=== PATIENT | female | born 1985 | race African-American/Black ===

== ENCOUNTER → 2016-08-10 | Outpatient (CLI) | payer MEDICAID | END | disposition home or self-care (01) | LOC: MW.MNT 12:25 | PROVIDERS: ATTEND Obstetrics & Gynecology | DX: Z71.3 Dietary counseling and surveillance (principal); O99.212 Obesity complicating pregnancy, second trimester; E66.01 Morbid (severe) obesity due to excess calories; Z68.39 Body mass index [BMI] 39.0-39.9, adult; Z3A.18 18 weeks gestation of pregnancy | CPT/HCPCS: 97802 ==

== ENCOUNTER 2017-01-02 22:59 | Inpatient (IN) | payer MEDICAID ==
[2017-01-02] MEDS ORDERED: Butorphanol 1 MG/ML SDV IVPUSH PRN (23:14)
[2017-01-02] MEDS ORDERED: Misoprostol 200 MCG Tab PO PRN (23:14)
[2017-01-02] MEDS ORDERED: Lidocaine 1% 50 ML MDV INJECT PRN (23:14)
[2017-01-02] MEDS ORDERED: Carboprost Tromethamine 250 MCG/1 ML Amp IM PRN (23:14)
[2017-01-02] MEDS ORDERED: Methylergonovine 0.2 MG/1 ML Amp IM PRN (23:14)
[2017-01-02] MEDS ORDERED: Sodium Chloride 0.9% 2.5 ML Syringe FLUSH PRN (23:14)
[2017-01-02] MEDS ORDERED: Nalbuphine 10 MG/1 ML Vial IVPUSH PRN (23:14)
[2017-01-02] MEDS ORDERED: Misoprostol 25 MCG (1/4 of 100 MCG) Tab VAG PRN (23:14)
[2017-01-02] MEDS ORDERED: Water For Irrigation,Sterile 1,000 ML Container IRR PRN (23:14)
[2017-01-02] MEDS ORDERED: Terbutaline 1 MG/ML SDV SUBCUT PRN (23:14)
[2017-01-02] MEDS ORDERED: Sodium Chloride 0.9% 10 ML Syringe FLUSH PRN (23:14)
[2017-01-02] MEDS ORDERED: Oxytocin/Lactated Ringers 30 UNIT/500 ML BAG IV SCH ×2 (23:15)
[2017-01-02] MEDS ORDERED: Misoprostol 25 MCG (1/4 of 100 MCG) Tab VAG SCH (23:15)
[2017-01-02] MEDS ORDERED: Ampicillin 2 GM in Sodium Chloride 0.9% 100 ML IV ONE ×2 (23:30→23:45)
[2017-01-02] MEDS: Lactated Ringers 1,000 ML IV SCH (23:50)
[2017-01-03] MEDS: Ampicillin 1 GM in Sodium Chloride 0.9% 50 ML IV SCH ×3 (04:30→12:35)
[2017-01-03] MEDS: Lactated Ringers 1,000 ML IV SCH ×2 (05:13→12:40)
[2017-01-03] MEDS ORDERED: fentaNYL 100 MCG/2 ML SDV ONE (12:37)
--- NOTE | 2017-01-03 12:37 | PCM.PREANE ---
Preanesthetic Assessment - Anesthesia/Transfusion/Family Hx Anesthesia History: Prior Anesthesia Without Reaction Transfusion History: No Prior Transfusion(s) - Review of Systems General: No Symptoms Pulmonary: No Symptoms Cardiovascular: No Symptoms Gastrointestinal: No Symptoms Neurological: No Symptoms Other: Reports: None - Physical Assessment Height: 5 ft 6 in Weight: 117.934 kg ASA Class: 2 Mental Status: Alert & Oriented x3 Airway Class: Mallampati = 2 Dentition: Reports: Normal Dentition Thyro-Mental Finger Breadths: 3 Mouth Opening Finger Breadths: 3 ROM/Head Extension: Full Lungs: Clear to Auscultation, Normal Respiratory Effort Cardiovascular: Regular Rate, Regular Rhythm - Lab Values: Laboratory Last Values WBC 7.78 K/uL (4.0-11.0) 01/02/17 23:43 RBC 3.93 M/uL (4.30-5.90) L 01/02/17 23:43 Hgb 9.1 g/dL (12.0-16.0) L 01/02/17 23:43 Hct 28.3 % (36.0-46.0) L 01/02/17 23:43 MCV 72.0 fL (80.0-98.0) L 01/02/17 23:43 MCH 23.2 pg (27.0-32.0) L 01/02/17 23:43 MCHC 32.2 g/dL (31.0-37.0) 01/02/17 23:43 RDW Std Deviation 57.1 fl (28.0-62.0) 01/02/17 23:43 RDW Coeff of Sammi 22 % (11.0-15.0) H 01/02/17 23:43 Plt Count 205 K/uL (150-400) 01/02/17 23:43 Nucleated RBC % 0.0 /100WBC 01/02/17 23:43 Nucleated RBCs # 0 K/uL 01/02/17 23:43 POC Glucose 71 mg/dL (60-110) 01/03/17 10:23 Blood Type B POSITIVE 01/02/17 23:43 Antibody Screen NEGATIVE 01/02/17 23:43 - Allergies Allergies/Adverse Reactions: Allergies Allergy/AdvReac Type Severity Reaction Status Date / Time No Known Allergies Allergy Verified 09/05/14 21:01 - Acknowledgements Anesthesia Type Planned: Epidural Pt an Appropriate Candidate for the Planned Anesthesia: Yes Alternatives and Risks of Anesthesia Discussed w Pt/Guardian: Yes Pt/Guardian Understands and Agrees with Anesthesia Plan: Yes PreAnesthesia Questionnaire HEENT History: Reports: None Cardiovascular History: Reports: None Respiratory History: Reports: Other (See Below) (Pneumonia) Gastrointestinal History: Reports: GERD Genitourinary History: Reports: None 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: : 4 Para: 2 LMP (Approximate): Musculoskeletal History: Reports: None Neurological History: Reports: None Psychiatric History: Reports: None Endocrine/Metabolic History: Reports: Diabetes, Gestational, Hypothyroidism, Obesity/BMI 30+ Hematologic History: Reports: Anemia Immunologic History: Reports: None Oncologic (Cancer) History: Reports: None Dermatologic History: Reports: None - Past Surgical History HEENT Surgical History: Reports: Oral Surgery - SUBSTANCE USE Smoking Status *Q: Never Smoker Days Per Week of Alcohol Use: 0 Recreational Drug Use History: No - HOME MEDS Home Medications: Home Meds Levothyroxine Sodium [Tirosint] 50 mcg PO TID 09/05/14 [History] Iron Polysaccharides Complex [Ferrex 150] 150 mg PO TID 01/03/17 [History] Vit W-Ca,Fe,FA(<1 mg) [ Vitamins] 01/03/17 [History] - CURRENT (IN HOUSE) MEDS Current Meds: Current Medications Butorphanol Tartrate (Stadol) 1 mg IVPUSH Q1H PRN PRN Reason: Pain Carboprost Tromethamine (Hemabate Ds) 250 mcg IM ASDIRECTED PRN PRN Reason: Post Hemorrhage Ampicillin Sodium 1 gm/ Sodium (Chloride) 50 mls @ 100 mls/hr IV Q4H [facility] Last Admin: 01/03/17 08:45 Dose: 100 mls/hr Lactated Ringer's (Ringers, Lactated) 1,000 mls @ 150 mls/hr IV ASDIRECTED ADAM Last Admin: 01/03/17 05:13 Dose: 150 mls/hr Oxytocin/Lactated Ringer's (Pitocin In Lr 30 Units/500 Ml) 30 unit in 500 mls @ 2 mls/hr IV TITRATE ADAM; 2 MUNITS/MIN PRN Reason: Protocol Lidocaine HCl (Xylocaine 1%) 50 ml INJECT .ONCE PRN PRN Reason: Laceration repair Methylergonovine Maleate (Methergine) 0.2 mg IM ASDIRECTED PRN PRN Reason: Post Hemorrhage Misoprostol (Cytotec) 200 mcg PO .ONCE PRN PRN Reason: Post Hemorrhage Misoprostol (Cytotec) 25 mcg VAG .ONCE ADAM Last Admin: 01/03/17 00:32 Dose: 25 mcg Misoprostol (Cytotec) 25 mcg VAG Q4H PRN PRN Reason: Cervical Ripening Stop: 01/04/17 03:15 Last Admin: 01/03/17 04:31 Dose: 25 mcg Sodium Chloride (Saline Flush) 10 ml FLUSH ASDIRECTED PRN PRN Reason: Keep Vein Open Sodium Chloride (Saline Flush) 2.5 ml FLUSH ASDIRECTED PRN PRN Reason: Keep Vein Open Sterile Water (Sterile Water For Irrigation) 1,000 ml IRR ASDIRECTED PRN PRN Reason: delivery Terbutaline Sulfate (Brethine) 0.25 mg SUBCUT ASDIRECTED PRN PRN Reason: Tacysystole Discontinued Medications Ampicillin Sodium 2 gm/ Sodium (Chloride) 100 mls @ 200 mls/hr IV ONETIME ONE Stop: 01/02/17 23:59 Last Admin: 01/03/17 01:19 Dose: Not Given Ampicillin Sodium 2 gm/ Sodium (Chloride) 100 mls @ 200 mls/hr IV ONETIME ONE Stop: 01/03/17 00:14 Last Admin: 01/03/17 00:17 Dose: 200 mls/hr Oxytocin/Lactated Ringer's (Pitocin In Lr 30 Units/500 Ml) 30 unit in 500 mls @ 999 mls/hr IV TITRATE ADAM; 999 MUNITS/MIN PRN Reason: Protocol Stop: 01/02/17 23:46 Nalbuphine HCl (Nubain) 10 mg IVPUSH Q1H PRN PRN Reason: Pain (severe 7-10) Stop: 01/03/17 01:15
[2017-01-03] MEDS ORDERED: Ropivacaine HCl/PF 0 ML ONE (12:38)
[2017-01-03] MEDS ORDERED: Docusate Sodium 100 MG Cap PO PRN (13:26)
[2017-01-03] MEDS ORDERED: Witch Hazel Medicated Pads 40/Jar TOP PRN (13:26)
[2017-01-03] MEDS ORDERED: Acetaminophen 500 MG Tab PO PRN ×2 (13:26)
[2017-01-03] MEDS ORDERED: Benzocaine/Menthol 20%-0.5% Spray 78 GM Cannister TOP PRN (13:26)
[2017-01-03] MEDS ORDERED: Lanolin 100% Cream 7 GM Tube TOP PRN (13:26)
[2017-01-03] MEDS ORDERED: Bisacodyl 10 MG Supp RECTAL PRN (13:26)
[2017-01-03] MEDS ORDERED: Ibuprofen 400 MG Tab PO PRN (13:26)
[2017-01-03] MEDS ORDERED: oxyCODONE 5 MG Tab PO PRN (13:26)
[2017-01-03] MEDS: Ibuprofen 800 MG Tab PO PRN ×2 (14:17→20:35)
--- NOTE | 2017-01-03 23:20 | PCM.DEL ---
L & D Note - General Info Date of Service: 01/03/17 Mother's Due Date: 01/11/17 - Delivery Note Cervical Ripening Method: Misoprostil (25mcg X 2 given ) Delivery Outcome: Livebirth Delivery Method: Spontaneous Vaginal Delivery Presentation: Right Occiput Posterior (ROP) Nuchal Cord: None Anesthesia Type: None Episiotomy Type: None Laceration: None Placenta: Intact, Spontaneous Cord: 3 Vessels Estimated Blood Loss: 350 Resuscitation Needed: Yes Score 1 min: 4 Score 5 min: 9 - Patient Data Vitals - Most Recent: Last Vital Signs Temp 36.8 C 01/03/17 19:45 Pulse 93 01/03/17 19:45 Resp 18 01/03/17 19:45 BP 127/65 01/03/17 19:45 Pulse Ox 97 01/03/17 19:45 Weight - Most Recent: 117.934 kg Lab Results Last 24 Hours: Laboratory Results - last 24 hr 01/02/17 01/02/17 01/03/17 Range/Units 23:43 23:43 00:23 WBC 7.78 (4.0-11.0) K/uL RBC 3.93 L (4.30-5.90) M/uL Hgb 9.1 L (12.0-16.0) g/dL Hct 28.3 L (36.0-46.0) % MCV 72.0 L (80.0-98.0) fL MCH 23.2 L (27.0-32.0) pg MCHC 32.2 (31.0-37.0) g/dL RDW Std Deviation 57.1 (28.0-62.0) fl RDW Coeff of Sammi 22 H (11.0-15.0) % Plt Count 205 (150-400) K/uL Nucleated RBC % 0.0 /100WBC Nucleated RBCs # 0 K/uL POC Glucose 117 H (60-110) mg/dL Blood Type B POSITIVE Antibody Screen NEGATIVE 01/03/17 Range/Units 10:23 WBC (4.0-11.0) K/uL RBC (4.30-5.90) M/uL Hgb (12.0-16.0) g/dL Hct (36.0-46.0) % MCV (80.0-98.0) fL MCH (27.0-32.0) pg MCHC (31.0-37.0) g/dL RDW Std Deviation (28.0-62.0) fl RDW Coeff of Sammi (11.0-15.0) % Plt Count (150-400) K/uL Nucleated RBC % /100WBC Nucleated RBCs # K/uL POC Glucose 71 (60-110) mg/dL Blood Type Antibody Screen Med Orders - Current: Current Medications Acetaminophen (Tylenol Extra Strength) 500 mg PO Q4H PRN PRN Reason: Pain Acetaminophen (Tylenol Extra Strength) 1,000 mg PO Q4H PRN PRN Reason: Pain Benzocaine/Menthol (Dermoplast Pain Relief 20%-0.5% [place]) 78 gm TOP ASDIRECTED PRN PRN Reason: Perineal Comfort Measure Last Admin: 01/03/17 20:37 Dose: 78 gm Bisacodyl (Dulcolax) 10 mg RECTAL .ONCE PRN PRN Reason: Constipation Docusate Sodium (Colace) 100 mg PO BID PRN PRN Reason: Constipation Emollient Ointment (Lansinoh Hpa) 0 gm TOP ASDIRECTED PRN PRN Reason: Sore Nipples Oxytocin/Lactated Ringer's (Pitocin In Lr 30 Units/500 Ml) 30 unit in 500 mls @ 2 mls/hr IV TITRATE ADAM; 2 MUNITS/MIN PRN Reason: Protocol Ibuprofen (Motrin) 400 mg PO Q4H PRN PRN Reason: Pain Ibuprofen (Motrin) 800 mg PO Q6H PRN PRN Reason: Pain Last Admin: 01/03/17 20:35 Dose: 800 mg Lidocaine HCl (Xylocaine 1%) 50 ml INJECT .ONCE PRN PRN Reason: Laceration repair Methylergonovine Maleate (Methergine) 0.2 mg IM ASDIRECTED PRN PRN Reason: Post Hemorrhage Misoprostol (Cytotec) 200 mcg PO .ONCE PRN PRN Reason: Post Hemorrhage Misoprostol (Cytotec) 25 mcg VAG .ONCE ADAM Last Admin: 01/03/17 00:32 Dose: 25 mcg Misoprostol (Cytotec) 25 mcg VAG Q4H PRN PRN Reason: Cervical Ripening Stop: 01/04/17 03:15 Last Admin: 01/03/17 04:31 Dose: 25 mcg Oxycodone HCl (Oxycodone) 5 mg PO Q2H PRN PRN Reason: Pain Sodium Chloride (Saline Flush) 10 ml FLUSH ASDIRECTED PRN PRN Reason: Keep Vein Open Sodium Chloride (Saline Flush) 2.5 ml FLUSH ASDIRECTED PRN PRN Reason: Keep Vein Open Sterile Water (Sterile Water For Irrigation) 1,000 ml IRR ASDIRECTED PRN PRN Reason: delivery Terbutaline Sulfate (Brethine) 0.25 mg SUBCUT ASDIRECTED PRN PRN Reason: Tacysystole Witch Mikki (Tucks) 1 pad TOP ASDIRECTED PRN PRN Reason: comfort care Last Admin: 01/03/17 20:40 Dose: 1 pad Discontinued Medications Butorphanol Tartrate (Stadol) 1 mg IVPUSH Q1H PRN PRN Reason: Pain Carboprost Tromethamine (Hemabate Ds) 250 mcg IM ASDIRECTED PRN PRN Reason: Post Hemorrhage Fentanyl (Sublimaze) Confirm Administered Dose 100 mcg .ROUTE .STK-MED ONE Stop: 01/03/17 12:38 Ampicillin Sodium 2 gm/ Sodium (Chloride) 100 mls @ 200 mls/hr IV ONETIME ONE Stop: 01/02/17 23:59 Last Admin: 01/03/17 01:19 Dose: Not Given Ampicillin Sodium 1 gm/ Sodium (Chloride) 50 mls @ 100 mls/hr IV Q4H [facility] Last Admin: 01/03/17 12:35 Dose: 100 mls/hr Lactated Ringer's (Ringers, Lactated) 1,000 mls @ 150 mls/hr IV ASDIRECTED [facility] Last Admin: 01/03/17 12:40 Dose: 999 mls/hr Ampicillin Sodium 2 gm/ Sodium (Chloride) 100 mls @ 200 mls/hr IV ONETIME ONE Stop: 01/03/17 00:14 Last Admin: 01/03/17 00:17 Dose: 200 mls/hr Oxytocin/Lactated Ringer's (Pitocin In Lr 30 Units/500 Ml) 30 unit in 500 mls @ 999 mls/hr IV TITRATE ADAM; 999 MUNITS/MIN PRN Reason: Protocol Stop: 01/02/17 23:46 Last Admin: 01/03/17 13:05 Dose: 999 munits/min, 999 mls/hr Ropivacaine (Naropin 0.2%) Confirm Administered Dose 100 mls @ as directed .ROUTE .STK-MED ONE Stop: 01/03/17 12:39 Nalbuphine HCl (Nubain) 10 mg IVPUSH Q1H PRN PRN Reason: Pain (severe 7-10) Stop: 01/03/17 01:15 - Problem List & Annotations (1) Delivery normal SNOMED Code(s): 70043329 Code(s): O80 - ENCOUNTER FOR FULL-TERM UNCOMPLICATED DELIVERY; Z37.9 - OUTCOME OF DELIVERY, UNSPECIFIED Status: Acute Current Visit: Yes (2) Delivery normal SNOMED Code(s): 62713625 Code(s): O80 - ENCOUNTER FOR FULL-TERM UNCOMPLICATED DELIVERY; Z37.9 - OUTCOME OF DELIVERY, UNSPECIFIED Status: Acute Current Visit: Yes - Problem List Review Problem List Initiated/Reviewed/Updated: Yes - My Orders Last 24 Hours: My Active Orders 01/02/17 23:14 Communication Order [RC] ASDIRECTED Communication Order [RC] ASDIRECTED Communication Order [RC] ASDIRECTED Notify Provider [RC] PRN Oxygen Therapy [RC] ASDIRECTED Up ad Damaris [RC] ASDIRECTED Vital Signs [RC] PER UNIT ROUTINE Vital Signs [RC] PER UNIT ROUTINE Lidocaine 1% [Xylocaine 1%] 50 ml INJECT .ONCE PRN Methylergonovine [Methergine] 0.2 mg IM ASDIRECTED PRN Misoprostol [Cytotec] 200 mcg PO .ONCE PRN Misoprostol [Cytotec] 25 mcg VAG Q4H PRN Sodium Chloride 0.9% [Saline Flush] 10 ml FLUSH ASDIRECTED PRN Sodium Chloride 0.9% [Saline Flush] 2.5 ml FLUSH ASDIRECTED PRN Terbutaline [Brethine] 0.25 mg SUBCUT ASDIRECTED PRN Water For Irrigation,Sterile [Sterile Water for Irrigation] 1,000 ml IRR ASDIRECTED PRN Scalp Electrode [WOMSER] Per Unit Routine Peripheral IV Insertion Adult [OM.PC] Routine 01/02/17 23:15 Misoprostol [Cytotec] 25 mcg VAG .ONCE Oxytocin/Lactated Ringers [Pitocin in LR 30 Units/500 ML] 30 unit in 500 ml IV TITRATE Medication Administration Instruction [OM.PC] Q3H 01/03/17 13:26 Patient Status [ADT] Routine Vital Signs [RC] PER UNIT ROUTINE Acetaminophen [Tylenol Extra Strength] 1,000 mg PO Q4H PRN Acetaminophen [Tylenol Extra Strength] 500 mg PO Q4H PRN Benzocaine/Menthol [Dermoplast Pain Relief 20%-0.5% [place]] 78 gm TOP ASDIRECTED PRN Bisacodyl [Dulcolax] 10 mg RECTAL .ONCE PRN Docusate Sodium [Colace] 100 mg PO BID PRN Ibuprofen [Motrin] 400 mg PO Q4H PRN Ibuprofen [Motrin] 800 mg PO Q6H PRN Lanolin [Lansinoh HPA] See Dose Instructions TOP ASDIRECTED PRN Witch Mikki [Tucks] 1 pad TOP ASDIRECTED PRN oxyCODONE 5 mg PO Q2H PRN Assess Lochia [WOMSER] Per Unit Routine Assess Uterine Involution [WOMSER] Per Unit Routine Peripheral IV Discontinue [OM.PC] Routine Resuscitation Status Routine 01/03/17 18:16 Abdominal Binder [OM.PC] Routine 01/03/17 Dinner Regular Diet [DIET] 01/04/17 05:11 HEMOGLOBIN/HEMATOCRIT,HH [HEME] Timed
--- NOTE | 2017-01-04 02:44 | OR ---
SURGEON: BOB DILLUZOLEX DATE OF PROCEDURE: 01/03/2017 PREOPERATION DIAGNOSIS: A 31-year-old 4, para 2-0-1-2 at 38 weeks' 6 days, who is post induction, now induced for gestational diabetes with fair control of fingersticks. POSTOPERATIVE DIAGNOSIS: A 31-year-old 4, now para 3, status post normal vaginal delivery. PROCEDURE: Cytotec induction of labor. ANESTHESIA: None. ESTIMATED BLOOD LOSS: 350 mL. FINDING: Live single female delivered in hospital in anterior position, which was initially occipital posterior with a weight of 3600 grams. Delivery was at 1303 hours. scores were 4 and 9. three-vessel cord noted. The placenta was delivered intact via controlled cord traction COMPLICATION: None. DISPOSITION: Mother and baby in good condition. BRIEF HISTORY: A 31-year-old 4, para 2-0-1-2, was admitted for induction of labor and for fair control of gestational diabetes, which was diet controlled. EFW 3600g . Induction of labor was started around 12 midnight with Cytotec and another Cytotec was placed at 4:45 a.m. The patient had normal progression in labor from FT/L/P at 12midnight to full dilation at 1 p.m. The patient was noted to be initially OP with , fully dilation, but rotated spontaneously and delivered OA. NARRATIVE: After the patient was noted to be in fully dilated, the patient was placed in dorsal lithotomy position. The patient had spontaneous vaginal delivery. The head was delivered and cord was noted to be around the body and subsequently the shoulder and the body was delivered without difficulty. The umbilical cord was clamped and cut. The baby was handed away to the nurse. The scores were noted to be 4 and 9. The baby weighed 3600 grams. Cord blood was taken and ABG was also taken. The placenta was also delivered spontaneously by controlled cord traction. The perineum was inspected, there was no laceration.The Uterus was well contracted There was excellent hemostasis. Pitocin was left to run in. Lap, sponge, and instruments were correct x2. The baby washanded over to the mother after resuscitation by the psychology clinician. Mother and baby left in good condition. Dr. Enriquez was present for the entire procedure. RACHAEL / KARLOS /[id number] MTDD
[2017-01-04] MEDS: Ibuprofen 800 MG Tab PO PRN ×2 (05:29→13:46)
[2017-01-04 08:02] VITALS: BP 123/83
--- NOTE | 2017-01-04 10:39 | PCM.PNPP ---
- General Info Date of Service: 01/04/17 Admission Dx/Problem (Free Text): Normal Delivery Subjective Update: 31yo now P3 s/p normal vaginal delivery PPD1 denies any problems today Normal lochia , voiding ambulating , passed flatus without difficulty Functional Status: Reports: Pain Controlled, Tolerating Diet, Ambulating, Urinating - Review of Systems General: Reports: No Symptoms HEENT: Reports: No Symptoms Pulmonary: Reports: No Symptoms Cardiovascular: Reports: No Symptoms Gastrointestinal: Reports: No Symptoms Genitourinary: Reports: No Symptoms Musculoskeletal: Reports: No Symptoms - General Info Date of Service: 01/04/17 - Patient Data Vital Signs - Most Recent: Last Vital Signs Temp 36.8 C 01/04/17 07:36 Pulse 94 01/04/17 07:36 Resp 16 01/04/17 07:36 BP 123/83 01/04/17 07:36 Pulse Ox 99 01/04/17 07:36 Weight - Most Recent: 117.934 kg Lab Results - Last 24 Hours: Laboratory Results - last 24 hr 01/04/17 01/04/17 Range/Units 05:06 05:07 Hgb 9.5 L (12.0-16.0) g/dL Hct 30.6 L (36.0-46.0) % POC Glucose 80 (60-110) mg/dL Med Orders - Current: Current Medications Acetaminophen (Tylenol Extra Strength) 500 mg PO Q4H PRN PRN Reason: Pain Acetaminophen (Tylenol Extra Strength) 1,000 mg PO Q4H PRN PRN Reason: Pain Benzocaine/Menthol (Dermoplast Pain Relief 20%-0.5% [place]) 78 gm TOP ASDIRECTED PRN PRN Reason: Perineal Comfort Measure Last Admin: 01/03/17 20:37 Dose: 78 gm Bisacodyl (Dulcolax) 10 mg RECTAL .ONCE PRN PRN Reason: Constipation Docusate Sodium (Colace) 100 mg PO BID PRN PRN Reason: Constipation Last Admin: 01/04/17 05:27 Dose: 100 mg Emollient Ointment (Lansinoh Hpa) 0 gm TOP ASDIRECTED PRN PRN Reason: Sore Nipples Oxytocin/Lactated Ringer's (Pitocin In Lr 30 Units/500 Ml) 30 unit in 500 mls @ 2 mls/hr IV TITRATE ADAM; 2 MUNITS/MIN PRN Reason: Protocol Ibuprofen (Motrin) 400 mg PO Q4H PRN PRN Reason: Pain Ibuprofen (Motrin) 800 mg PO Q6H PRN PRN Reason: Pain Last Admin: 01/04/17 05:29 Dose: 800 mg Lidocaine HCl (Xylocaine 1%) 50 ml INJECT .ONCE PRN PRN Reason: Laceration repair Methylergonovine Maleate (Methergine) 0.2 mg IM ASDIRECTED PRN PRN Reason: Post Hemorrhage Misoprostol (Cytotec) 200 mcg PO .ONCE PRN PRN Reason: Post Hemorrhage Misoprostol (Cytotec) 25 mcg VAG .ONCE ADAM Last Admin: 01/03/17 00:32 Dose: 25 mcg Oxycodone HCl (Oxycodone) 5 mg PO Q2H PRN PRN Reason: Pain Last Admin: 01/04/17 05:28 Dose: 5 mg Sodium Chloride (Saline Flush) 10 ml FLUSH ASDIRECTED PRN PRN Reason: Keep Vein Open Sodium Chloride (Saline Flush) 2.5 ml FLUSH ASDIRECTED PRN PRN Reason: Keep Vein Open Sterile Water (Sterile Water For Irrigation) 1,000 ml IRR ASDIRECTED PRN PRN Reason: delivery Terbutaline Sulfate (Brethine) 0.25 mg SUBCUT ASDIRECTED PRN PRN Reason: Tacysystole Witch Mikki (Tucks) 1 pad TOP ASDIRECTED PRN PRN Reason: comfort care Last Admin: 01/03/17 20:40 Dose: 1 pad Discontinued Medications Butorphanol Tartrate (Stadol) 1 mg IVPUSH Q1H PRN PRN Reason: Pain Carboprost Tromethamine (Hemabate Ds) 250 mcg IM ASDIRECTED PRN PRN Reason: Post Hemorrhage Fentanyl (Sublimaze) Confirm Administered Dose 100 mcg .ROUTE .STK-MED ONE Stop: 01/03/17 12:38 Ampicillin Sodium 2 gm/ Sodium (Chloride) 100 mls @ 200 mls/hr IV ONETIME ONE Stop: 01/02/17 23:59 Last Admin: 01/03/17 01:19 Dose: Not Given Ampicillin Sodium 1 gm/ Sodium (Chloride) 50 mls @ 100 mls/hr IV Q4H ADAM Last Admin: 01/03/17 12:35 Dose: 100 mls/hr Lactated Ringer's (Ringers, Lactated) 1,000 mls @ 150 mls/hr IV ASDIRECTED ADAM Last Admin: 01/03/17 12:40 Dose: 999 mls/hr Ampicillin Sodium 2 gm/ Sodium (Chloride) 100 mls @ 200 mls/hr IV ONETIME ONE Stop: 01/03/17 00:14 Last Admin: 01/03/17 00:17 Dose: 200 mls/hr Oxytocin/Lactated Ringer's (Pitocin In Lr 30 Units/500 Ml) 30 unit in 500 mls @ 999 mls/hr IV TITRATE ADAM; 999 MUNITS/MIN PRN Reason: Protocol Stop: 01/02/17 23:46 Last Admin: 01/03/17 13:05 Dose: 999 munits/min, 999 mls/hr Ropivacaine (Naropin 0.2%) Confirm Administered Dose 100 mls @ as directed .ROUTE .STK-MED ONE Stop: 01/03/17 12:39 Misoprostol (Cytotec) 25 mcg VAG Q4H PRN PRN Reason: Cervical Ripening Stop: 01/04/17 03:15 Last Admin: 01/03/17 04:31 Dose: 25 mcg Nalbuphine HCl (Nubain) 10 mg IVPUSH Q1H PRN PRN Reason: Pain (severe 7-10) Stop: 01/03/17 01:15 - Infant Interaction Disposition, : [place] in Room with Family Infant Interaction: Holding Infant Infant Feeding: Continues to Breastfeed Support Person: , Significant Other - Recovery Exam Fundal Tone: Firm Fundal Level: At Umbilicus Fundal Placement: Midline Lochia Amount: Scant Lochia Color: Rubra/Red Perineum Description: Intact, Minimal Bruising/Swelling Episiotomy/Laceration: None Bladder Status: Nonpalpable Urinary Elimination: Voided - Exam General: Alert, Oriented Lungs: Clear to Auscultation Cardiovascular: Regular Rate, Regular Rhythm GI/Abdominal Exam: Normal Bowel Sounds (Uterus firm 20 weeks , normal lochia ) Extremities: No Pedal Edema - Problem List & Annotations (1) Delivery normal SNOMED Code(s): 12001043 Code(s): O80 - ENCOUNTER FOR FULL-TERM UNCOMPLICATED DELIVERY; Z37.9 - OUTCOME OF DELIVERY, UNSPECIFIED Status: Acute Current Visit: Yes (2) Delivery normal SNOMED Code(s): 19191928 Code(s): O80 - ENCOUNTER FOR FULL-TERM UNCOMPLICATED DELIVERY; Z37.9 - OUTCOME OF DELIVERY, UNSPECIFIED Status: Acute Current Visit: Yes - Problem List Review Problem List Initiated/Reviewed/Updated: Yes - My Orders Last 24 Hours: My Active Orders 01/03/17 13:26 Patient Status [ADT] Routine Vital Signs [RC] PER UNIT ROUTINE Acetaminophen [Tylenol Extra Strength] 1,000 mg PO Q4H PRN Acetaminophen [Tylenol Extra Strength] 500 mg PO Q4H PRN Benzocaine/Menthol [Dermoplast Pain Relief 20%-0.5% [place]] 78 gm TOP ASDIRECTED PRN Bisacodyl [Dulcolax] 10 mg RECTAL .ONCE PRN Docusate Sodium [Colace] 100 mg PO BID PRN Ibuprofen [Motrin] 400 mg PO Q4H PRN Ibuprofen [Motrin] 800 mg PO Q6H PRN Lanolin [Lansinoh HPA] See Dose Instructions TOP ASDIRECTED PRN Witch Mikki [Tucks] 1 pad TOP ASDIRECTED PRN oxyCODONE 5 mg PO Q2H PRN Assess Lochia [WOMSER] Per Unit Routine Assess Uterine Involution [WOMSER] Per Unit Routine Peripheral IV Discontinue [OM.PC] Routine Resuscitation Status Routine 01/03/17 18:16 Abdominal Binder [OM.PC] Routine 01/03/17 Dinner Regular Diet [DIET] - Assessment Assessment:: 31yo P3 PPD 1 s/p doing well GDMA1 Mild anemia - asymptomatic without difficulty - Plan Plan:: For Discharge today Encourage Iron, Colace and Vitamin C intake Ambulate 2hrs PP in 6 weeks
== END 2017-01-04 15:50 | disposition home or self-care (01) | DRG 775 ==
LOC: MW.OBCHECK 22:59 → MW.OB 23:05 → MW.OBCHECK 23:14 → OBSVTOIN 01-03 13:09 → UNDODISIN 01-04 15:50 → MW.OB 01-05 08:59
PROVIDERS: ADMIT Obstetrics & Gynecology; ATTEND Obstetrics & Gynecology
PROC: 10E0XZZ Delivery of Products of Conception, External Approach (ICD-10-PCS; principal; 2017-01-03)
PROC: 3E0P7GC Introduction of Other Therapeutic Substance into Female Reproductive, Via Natural or Artificial Opening (ICD-10-PCS; 2017-01-03)
DX: O24.420 Gestational diabetes mellitus in childbirth, diet controlled (principal); Z3A.38 38 weeks gestation of pregnancy; Z37.0 Single live birth
CPT/HCPCS: 36415; 59025; 82962; 85014; 85018; 85027; 86850; 86900; 86901; A9270-GY; J0290; J7030; J7050; J7120

== ENCOUNTER 2017-04-06 08:19 | Emergency (ER) | payer MEDICAID ==
[2017-04-06] MEDS ORDERED: Ketorolac 60 MG/2 ML SDV IM ONE (08:50)
--- NOTE | 2017-04-06 08:50 | EDM.PDOC ---
ED HPI GENERAL MEDICAL PROBLEM - General Chief Complaint: Headache Stated Complaint: HEADACHE Time Seen by Provider: 04/06/17 08:38 - History of Present Illness INITIAL COMMENTS - FREE TEXT/NARRATIVE: HISTORY AND PHYSICAL: History of present illness: The patient is a healthy 31-year-old female who presents with a four-day history of a frontal and top of the head headache that has been constant but does not wake her from sleep. Patient has had sinus congestion nasal drainage and a slight cough for the last 4 days as well. She has had no nausea no vomiting no abdominal pain and denies as she has an IUD. She's not had fevers with these symptoms. She doesn't have a history of chronic headaches. Patient says she feels very nasally and has been taking Mucinex for the cough saw her cough is improved. She is taking other other [id number] meds but no Claritin and Addie or Benadryl. She has used as Tylenol or Motrin for the headache and she has small children at home. Patient says that she was breast-feeding but is currently stopping. Patient denies any recent trauma and has no discrete neck or back of the head pain and no visual problems. Patient states that she wanted just to go to her provider at [facility] but they had no appointments available Review of systems: As per history of present illness and below otherwise all systems reviewed and negative. Past medical history: As per history of present illness and as reviewed below otherwise noncontributory. Surgical history: As per history of present illness and as reviewed below otherwise noncontributory. Social history: No reported history of drug or alcohol abuse. Family history: As per history of present illness and as reviewed below otherwise noncontributory. Physical exam: Gen.: Well-developed well-nourished female who is nontoxic and has nasal quality to voice. Vital signs of the note by me. HEENT: Atraumatic, normocephalic, pupils reactive, negative for conjunctival pallor or scleral icterus, mucous membranes moist, throat clear, neck supple, nontender, trachea midline. There is no discrete sinus tenderness no cervical adenopathy or nuchal rigidity. The nasal turbinates are grossly boggy bilaterally with erythema of the mucosa. Lungs: Clear to auscultation, breath sounds equal bilaterally, chest nontender. Heart: S1S2, regular, negative for clicks, rubs, or JVD. Abdomen: Soft, nondistended, nontender. Negative for masses or hepatosplenomegaly. NABS Pelvis: Stable nontender. Genitourinary: Deferred. Rectal: Deferred. Extremities: Atraumatic, negative for cords or calf pain. Neurovascular unremarkable. Neuro: Awake, alert, oriented. Cranial nerves II through XII unremarkable. Cerebellum unremarkable. Motor and sensory unremarkable throughout. Exam nonfocal. Diagnostics: [] Therapeutics: I discussed with the patient as she has had no trauma and no headache history and she has nasal congestion nasal quality to voice boggy turbinates we will likely treat this as a sinus headache. I strongly advised her to connect with her provider in the clinic. She sees a provider at [facility]. I will give her some tramadol to use for her headache as well as antibiotics and advise over -the-counter antihistamines and Flonase Impression: Headache, sinusitis Definitive disposition and diagnosis as appropriate pending reevaluation and review of above. Right Headache Pain Score (Numeric/FACES): 10 - Related Data Allergies Allergy/AdvReac Type Severity Reaction Status Date / Time No Known Allergies Allergy Verified 09/05/14 21:01 Home Meds: Home Meds Levothyroxine Sodium [Tirosint] 50 mcg PO TID 09/05/14 [History] Vit W-Ca,Fe,FA(<1 mg) [ Vitamins] 01/03/17 [History] Docusate Sodium [Colace] 100 mg PO BID PRN #30 cap 01/04/17 [Rx] Ibuprofen [IJD: Ibuprofen] 800 mg PO Q6H PRN #30 tablet 01/04/17 [Rx] Iron Polysaccharides Complex [Ferrex 150] 150 mg PO TID 90 Days 01/04/17 [Rx] Past Medical History HEENT History: Reports: None Cardiovascular History: Reports: None Respiratory History: Reports: Other (See Below) (Pneumonia) Gastrointestinal History: Reports: GERD Genitourinary History: Reports: None 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: Musculoskeletal History: Reports: None Neurological History: Reports: None Psychiatric History: Reports: None Endocrine/Metabolic History: Reports: Diabetes, Gestational, Hypothyroidism, Obesity/BMI 30+ Hematologic History: Reports: Anemia Immunologic History: Reports: None Oncologic (Cancer) History: Reports: None Dermatologic History: Reports: None - Past Surgical History HEENT Surgical History: Reports: Oral Surgery Social & Family History - Family History Cardiac: Reports: Hypertension Endocrine/Metabolic: Reports: Diabetes, type II - Tobacco Use Smoking Status *Q: Never Smoker - Alcohol Use Days Per Week of Alcohol Use: 0 - Recreational Drug Use Recreational Drug Use: No ED ROS GENERAL - Review of Systems Review Of Systems: ROS reveals no pertinent complaints other than HPI. ED EXAM, GENERAL - Physical Exam Exam: See Below (See dictation) Course - Vital Signs Last Recorded V/S: Last Vital Signs Temp 36.3 C 04/06/17 08:34 Pulse 88 04/06/17 08:34 Resp 12 04/06/17 08:34 BP 125/77 04/06/17 08:34 Pulse Ox 95 04/06/17 08:34 Departure - Departure Time of Disposition: 08:48 Disposition: Home, Self-Care 01 Condition: Good Clinical Impression: Headache Qualifiers: Headache type: unspecified Headache chronicity pattern: acute headache Intractability: not intractable Qualified Code(s): R51 - Headache Sinusitis Qualifiers: Sinusitis location: unspecified location Chronicity: unspecified Qualified Code (s): J32.9 - Chronic sinusitis, unspecified - Discharge Information Referrals: Esa Lott MD [Primary Care Provider] - Additional Instructions: The following information is given to patients seen in the emergency department who are being discharged to home. This information is to outline your options for follow-up care. We provide all patients seen in our emergency department with a follow-up referral. The need for follow-up, as well as the timing and circumstances, are variable depending upon the specifics of your emergency department visit. If you don't have a primary care physician on staff, we will provide you with a referral. We always advise you to contact your personal physician following an emergency department visit to inform them of the circumstance of the visit and for follow-up with them and/or the need for any referrals to a consulting specialist. The emergency department will also refer you to a specialist when appropriate. This referral assures that you have the opportunity for followup care with a specialist. All of these measure are taken in an effort to provide you with optimal care, which includes your followup. Under all circumstances we always encourage you to contact your private physician who remains a resource for coordinating your care. When calling for followup care, please make the office aware that this follow-up is from your recent emergency room visit. If for any reason you are refused follow-up, please contact the [facility] emergency department at and ask to speak to the emergency department charge nurse. [address] [place] [address] [facility] Primary care- Internal Medicine and Family [address] [address] Please use [id number] Claritin Addie or Benadryl to help dry her sinuses and continue to use [id number] Tylenol and ibuprofen during the day when you are watching her children. Please use the tramadol prescribed when you're not watching her children and are able to rest as it may make you drowsy. Please take antibiotics as directed. Please also buy and use over-the- counter Flonase for the next 10-14 days. Push hydration and rest. Please call and follow-up with your provider at [facility] in the next few days and return here as needed as discussed
[2017-04-06 09:13] VITALS: BP 123/70
== END 2017-04-06 09:26 | disposition home or self-care (01) ==
LOC: MW.ED 08:19
DX: J32.9 Chronic sinusitis, unspecified (principal); E03.9 Hypothyroidism, unspecified; Z86.2 Personal history of diseases of the blood and blood-forming organs and certain disorders involving the immune mechanism
CPT/HCPCS: 96372; 99283; J1885; 99284

== ENCOUNTER 2018-10-15 19:58 | Emergency (ER) | payer MEDICAID ==
--- NOTE | 2018-10-15 20:21 | EDM.PDOC ---
ED HPI GENERAL MEDICAL PROBLEM - General Chief Complaint: Skin Complaint Stated Complaint: rash Time Seen by Provider: 10/15/18 20:21 Source of Information: Reports: Patient History Limitations: Reports: No Limitations - History of Present Illness INITIAL COMMENTS - FREE TEXT/NARRATIVE: HISTORY AND PHYSICAL: History of present illness: Patient is a 33-year-old female who presents to the emergency room with complaints of skin lesions to her left posterior shoulder blade that wraps around to her anterior chest/upper breast. She describes the blisters as burning , periodic and sharp stabbing pain. She states last week she did have a cold but this did seem to resolve. Patient denies any fever, chills, headache, change in vision, syncope or near syncope. Denies any chest pain, back pain, shortness of breath or cough. Denies any abdominal pain, nausea, vomiting, diarrhea, constipation or dysuria. Has not noted any blood in urine or stool. Patient has been eating and drinking appropriately. Review of systems: As per history of present illness and below otherwise all systems reviewed and negative. Past medical history: As per history of present illness and as reviewed below otherwise noncontributory. Surgical history: As per history of present illness and as reviewed below otherwise noncontributory. Social history: See social history for further information Family history: As per history of present illness and as reviewed below otherwise noncontributory. Physical exam: General: Well-developed and well-nourished 33-year-old female. Alert and oriented. Nontoxic appearing and in no acute distress. HEENT: Atraumatic, normocephalic, pupils equal and reactive bilaterally, negative for conjunctival pallor or scleral icterus, mucous membranes moist, TMs normal bilaterally, throat clear, neck supple, nontender, trachea midline. No drooling or trismus noted. No meningeal signs. No hot potato voice noted. Lungs: Clear to auscultation, breath sounds equal bilaterally, chest nontender. Heart: S1S2, regular rate and rhythm without overt murmur Abdomen: Soft, nondistended, nontender. Skin: Herpes zoster's blister type rash noted to the left posterior scapula. A few blister type lesions noted to the left breast. Otherwise skin is intact, warm, dry. Extremities: Atraumatic, moves all extremities per self without difficulty or deficits, negative for cords or calf pain. Neurovascular unremarkable. Neuro: Awake, alert, oriented. Cranial nerves II through XII unremarkable. Cerebellum unremarkable. Motor and sensory unremarkable throughout. Exam nonfocal. Notes: Patient has previously had chickenpox. It appears that she may have shingles. We discussed treatment for this. Supportive care measures were reviewed and discussed. Voices understanding and is agreeable to plan of care. Denies any further questions or concerns at this time. Diagnostics: None Therapeutics: None Prescription: Valacyclovir Cisco Impression: Shingles Plan: 1. Keep the areas clean and dry. Continue to monitor for signs of improvement. While at work earlier around other people please keep the areas covered. 2. Good handwashing as we discussed. 3. Take the antiviral medication as directed. 4. Cisco for moderate to severe pain. This medication may cause drowsiness a do not take it will driving her needing to be functioning outside of the house. 5. Follow-up with your primary care provider for reevaluation and management. Return to the ED as needed and as discussed. Definitive disposition and diagnosis as appropriate pending reevaluation and review of above. rash, back, breasts, arms Pain Score (Numeric/FACES): 10 - Related Data Allergies Allergy/AdvReac Type Severity Reaction Status Date / Time No Known Allergies Allergy Verified 10/15/18 20:16 Home Meds: Home Meds Multivitamin [Multivitamins] 1 tab PO DAILY 12/28/17 [History] Thyroid,Pork [[place] Thyroid] 60 mg PO DAILY 12/28/17 [History] metFORMIN HCl [Metformin HCl] 1,000 mg PO DAILY 12/28/17 [History] Ferrous Gluconate [Ferate] 27 mg PO DAILY 10/15/18 [History] Past Medical History HEENT History: Reports: None Cardiovascular History: Reports: None Respiratory History: Reports: Other (See Below) Gastrointestinal History: Reports: GERD Genitourinary History: Reports: None 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: Musculoskeletal History: Reports: Back Pain, Chronic Neurological History: Reports: None Psychiatric History: Reports: None Endocrine/Metabolic History: Reports: Diabetes, Gestational, Hypothyroidism, Obesity/BMI 30+ Other Endocrine/Metabolic History: on metformin for "weight loss" Hematologic History: Reports: Anemia Immunologic History: Reports: None Oncologic (Cancer) History: Reports: None Dermatologic History: Reports: Other (See Below) Other Dermatologic History: hidradenitis - Infectious Disease History Infectious Disease History: Reports: None - Past Surgical History Head Surgeries/Procedures: Reports: None HEENT Surgical History: Reports: Oral Surgery Social & Family History - Family History Family Medical History: Noncontributory Cardiac: Reports: Hypertension Endocrine/Metabolic: Reports: Diabetes, type II - Caffeine Use Caffeine Use: Reports: None ED ROS GENERAL - Review of Systems Review Of Systems: ROS reveals no pertinent complaints other than HPI. ED EXAM, SKIN/RASH Exam: See Below (See dictation) Course - Vital Signs Last Recorded V/S: Last Vital Signs Temp 97.4 F 10/15/18 20:14 Pulse 89 10/15/18 20:43 Resp 17 10/15/18 20:43 BP 112/81 10/15/18 20:43 Pulse Ox 99 10/15/18 20:43 Departure - Departure Time of Disposition: 20:30 Disposition: Home, Self-Care 01 Clinical Impression: Shingles Qualifiers: Herpes zoster complications: without complications Qualified Code(s): B02.9 - Zoster without complications - Discharge Information Instructions: Shingles, [id number] Referrals: PCP,None [Primary Care Provider] - Forms: ED Department Discharge Additional Instructions: The following information is given to patients seen in the emergency department who are being discharged to home. This information is to outline your options for follow-up care. We provide all patients seen in our emergency department with a follow-up referral. The need for follow-up, as well as the timing and circumstances, are variable depending upon the specifics of your emergency department visit. If you don't have a primary care physician on staff, we will provide you with a referral. We always advise you to contact your personal physician following an emergency department visit to inform them of the circumstance of the visit and for follow-up with them and/or the need for any referrals to a consulting specialist. The emergency department will also refer you to a specialist when appropriate. This referral assures that you have the opportunity for follow-up care with a specialist. All of these measure are taken in an effort to provide you with optimal care, which includes your follow-up. Under all circumstances we always encourage you to contact your private physician who remains a resource for coordinating your care. When calling for follow-up care, please make the office aware that this follow-up is from your recent emergency room visit. If for any reason you are refused follow-up, please contact the [facility] Emergency Department at and asked to speak to the emergency department charge nurse. [facility] Primary Care [address] [place] [address] [facility] [address] [place] [id number] 1. Keep the areas clean and dry. Continue to monitor for signs of improvement. While at work earlier around other people please keep the areas covered. 2. Good handwashing as we discussed. 3. Take the antiviral medication as directed. 4. Cisco for moderate to severe pain. This medication may cause drowsiness a do not take it will driving her needing to be functioning outside of the house. 5. Follow-up with your primary care provider for reevaluation and management. Return to the ED as needed and as discussed.
[2018-10-15 21:20] VITALS: BP 112/81
== END 2018-10-15 20:44 | disposition home or self-care (01) ==
LOC: MW.ED 19:58
DX: B02.9 Zoster without complications (principal); E03.9 Hypothyroidism, unspecified; Z79.899 Other long term (current) drug therapy
CPT/HCPCS: 99282

== ENCOUNTER 2018-11-15 20:00 | Emergency (ER) | payer MEDICAID ==
--- NOTE | 2018-11-15 20:22 | EDM.PDOC ---
ED HPI GENERAL MEDICAL PROBLEM - General Chief Complaint: ENT Problem Stated Complaint: EAR INFECTION Time Seen by Provider: 11/15/18 20:11 Source of Information: Reports: Patient History Limitations: Reports: No Limitations - History of Present Illness INITIAL COMMENTS - FREE TEXT/NARRATIVE: HISTORY AND PHYSICAL: History of present illness: 33-year-old female presenting for left ear pain. Patient reports that she started to have a sore throat 3 days ago and this morning at approximately 8 AM she started having left ear pain with muffled hearing. She has no recent illnesses. Denies chest pain, shortness of breath, wheezing, or coughing. Denies fever but reports chills and muscle aches. She has been taking Tylenol Cold [id number] with minimal relief. Patient is alert and oriented and in no acute distress. Review of systems: As per history of present illness and below otherwise all systems reviewed and negative. Past medical history: As per history of present illness and as reviewed below otherwise noncontributory. Surgical history: As per history of present illness and as reviewed below otherwise noncontributory. Social history: See social history for further information Family history: As per history of present illness and as reviewed below otherwise noncontributory. Physical exam: General: Well-developed and well-nourished 33-year-old -Greek female. Alert and oriented. Nontoxic appearing and in no acute distress. HEENT: Atraumatic, normocephalic, pupils equal and reactive bilaterally, negative for conjunctival pallor or scleral icterus, mucous membranes moist, TM is erythematous with dull light reflex and no bulging, right TM is pinkish with good light reflex no bulging, throat clear, neck supple, nontender, trachea midline. No drooling or trismus noted. No meningeal signs. No hot potato voice noted. Lungs: Clear to auscultation, breath sounds equal bilaterally, chest nontender. Heart: S1S2, regular rate and rhythm without overt murmur Abdomen: Soft, nondistended, nontender. Skin: Intact, warm, dry. No lesions or rashes noted. Extremities: Atraumatic, moves all extremities per self without difficulty or deficits. Neurovascular unremarkable. Neuro: Awake, alert, oriented. Cranial nerves II through XII unremarkable. Cerebellum unremarkable. Motor and sensory unremarkable throughout. Exam nonfocal. Notes: Medication education and supportive care measures were reviewed and discussed. Voices understanding and is agreeable to plan of care. Denies any further questions or concerns at this time. Diagnostics: None Therapeutics: None Prescription: Augmentin Impression: Left otitis media Plan: 1. Take your antibiotic as prescribed 2. Tylenol and/or ibuprofen as needed for pain management 3. Follow-up with your primary care provider as we discussed. Return to the ED as needed and as discussed. Definitive disposition and diagnosis as appropriate pending reevaluation and review of above. Left Ear Pain Score (Numeric/FACES): 10 - Related Data Allergies Allergy/AdvReac Type Severity Reaction Status Date / Time No Known Allergies Allergy Verified 11/15/18 20:13 Home Meds: Home Meds Multivitamin [Multivitamins] 1 tab PO DAILY 12/28/17 [History] Thyroid,Pork [[place] Thyroid] 60 mg PO DAILY 12/28/17 [History] metFORMIN HCl [Metformin HCl] 1,000 mg PO DAILY 12/28/17 [History] Ferrous Gluconate [Ferate] 27 mg PO DAILY 10/15/18 [History] Past Medical History HEENT History: Reports: None Cardiovascular History: Reports: None Respiratory History: Reports: Other (See Below) Gastrointestinal History: Reports: GERD Genitourinary History: Reports: 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: Musculoskeletal History: Reports: Back Pain, Chronic Neurological History: Reports: None Psychiatric History: Reports: None Endocrine/Metabolic History: Reports: Diabetes, Gestational, Hypothyroidism, Obesity/BMI 30+ Other Endocrine/Metabolic History: on metformin for "weight loss" Hematologic History: Reports: Anemia Immunologic History: Reports: None Oncologic (Cancer) History: Reports: None Dermatologic History: Reports: Other (See Below) Other Dermatologic History: hidradenitis - Infectious Disease History Infectious Disease History: Reports: None - Past Surgical History Head Surgeries/Procedures: Reports: None HEENT Surgical History: Reports: Oral Surgery Social & Family History - Family History Family Medical History: Noncontributory Cardiac: Reports: Hypertension Endocrine/Metabolic: Reports: Diabetes, type II - Tobacco Use Smoking Status *Q: Never Smoker Second Hand Smoke Exposure: No - Caffeine Use Caffeine Use: Reports: Coffee - Recreational Drug Use Recreational Drug Use: No ED ROS ENT - Review of Systems Review Of Systems: ROS reveals no pertinent complaints other than HPI. ED EXAM, ENT - Physical Exam Exam: See Below (See dictation) Course - Vital Signs Last Recorded V/S: Last Vital Signs Temp 97.3 F 11/15/18 20:13 Pulse 89 11/15/18 20:13 Resp 18 11/15/18 20:13 BP 125/78 11/15/18 20:13 Pulse Ox 98 11/15/18 20:13 Departure - Departure Time of Disposition: 20:21 Disposition: Home, Self-Care 01 Clinical Impression: Otitis media Qualifiers: Otitis media type: suppurative Chronicity: acute Laterality: left Recurrence: non-recurrent Spontaneous tympanic membrane rupture: without spontaneous rupture Qualified Code(s): H66.002 - Acute suppurative otitis media without spontaneous rupture of ear drum, left ear - Discharge Information Instructions: Otitis Media, Adult, [id number] Referrals: PCP,None [Primary Care Provider] - Forms: ED Department Discharge Additional Instructions: The following information is given to patients seen in the emergency department who are being discharged to home. This information is to outline your options for follow-up care. We provide all patients seen in our emergency department with a follow-up referral. The need for follow-up, as well as the timing and circumstances, are variable depending upon the specifics of your emergency department visit. If you don't have a primary care physician on staff, we will provide you with a referral. We always advise you to contact your personal physician following an emergency department visit to inform them of the circumstance of the visit and for follow-up with them and/or the need for any referrals to a consulting specialist. The emergency department will also refer you to a specialist when appropriate. This referral assures that you have the opportunity for follow-up care with a specialist. All of these measure are taken in an effort to provide you with optimal care, which includes your follow-up. Under all circumstances we always encourage you to contact your private physician who remains a resource for coordinating your care. When calling for follow-up care, please make the office aware that this follow-up is from your recent emergency room visit. If for any reason you are refused follow-up, please contact the [facility] Emergency Department at and asked to speak to the emergency department charge nurse. [facility] Primary Care [address] [place] [address] [place] [address] [address] 1. Take your antibiotic as prescribed 2. Tylenol and/or ibuprofen as needed for pain management 3. Follow-up with your primary care provider as we discussed. Return to the ED as needed and as discussed.
[2018-11-15 20:29] VITALS: BP 112/70
== END 2018-11-15 20:30 | disposition home or self-care (01) ==
LOC: MW.ED 20:00
DX: H66.002 Acute suppurative otitis media without spontaneous rupture of ear drum, left ear (principal); K21.9 Gastro-esophageal reflux disease without esophagitis; E03.9 Hypothyroidism, unspecified; D64.9 Anemia, unspecified; Z79.899 Other long term (current) drug therapy
CPT/HCPCS: 99282

== ENCOUNTER 2019-07-23 14:04 | Inpatient (IN) | payer SELFPAY ==
[2019-07-23] MEDS ORDERED: Sodium Chloride 0.9% 10 ML SDV IV PRN (22:34)
[2019-07-23] MEDS ORDERED: Ondansetron 4 MG/2 ML SDV IVPUSH PRN (22:34)
[2019-07-23] MEDS ORDERED: Methylergonovine 0.2 MG/1 ML Amp IM PRN (22:34)
[2019-07-23] MEDS ORDERED: Misoprostol 200 MCG Tab PO PRN (22:34)
[2019-07-23] MEDS ORDERED: Nalbuphine 10 MG/1 ML Vial IVPUSH PRN (22:34)
[2019-07-23] MEDS ORDERED: Carboprost Tromethamine 250 MCG/1 ML Amp IM PRN (22:34)
[2019-07-23] MEDS ORDERED: Lidocaine 1% 50 ML MDV INJECT PRN (22:34)
[2019-07-23] MEDS ORDERED: Water For Irrigation,Sterile 1,000 ML Container IRR PRN (22:34)
[2019-07-23] MEDS ORDERED: Tranexamic Acid 1,000 MG in Sodium Chloride 0.9% 100 ML IV PRN (22:34)
[2019-07-23] MEDS ORDERED: Butorphanol 1 MG/ML SDV IVPUSH PRN (22:34)
[2019-07-23] MEDS ORDERED: Sodium Chloride 0.9% 10 ML Syringe FLUSH PRN (22:34)
[2019-07-23] MEDS ORDERED: Sodium Chloride 0.9% 2.5 ML Syringe FLUSH PRN (22:34)
[2019-07-23] MEDS ORDERED: Misoprostol 50 MCG (1/2 of 100 MCG) Tab VAG ONE (22:40)
[2019-07-23] MEDS ORDERED: Oxytocin/0.9 % Sodium Chloride 30 UNIT/500 ML BAG IV SCH (22:45)
[2019-07-24] MEDS: Lactated Ringers 1,000 ML IV SCH ×2 (01:30→09:11)
[2019-07-24] MEDS ORDERED: Terbutaline 1 MG/ML SDV SUBCUT PRN (01:31)
[2019-07-24] MEDS ORDERED: Oxytocin/0.9 % Sodium Chloride 30 UNIT/500 ML BAG IV SCH (01:45)
[2019-07-24] MEDS ORDERED: Dextrose 5%-Lactated Ringers 1,000 ML IV SCH (10:00)
[2019-07-24] MEDS ORDERED: Bupivicaine/fentaNYL/NS 250 ML ONE (10:03)
--- NOTE | 2019-07-24 10:38 | PCM.PREANE ---
Preanesthetic Assessment - Anesthesia/Transfusion/Family Hx Anesthesia History: Prior Anesthesia Without Reaction Family History of Anesthesia Reaction: No Transfusion History: No Prior Transfusion(s) - Review of Systems General: No Symptoms Pulmonary: No Symptoms Cardiovascular: No Symptoms Gastrointestinal: Other (obesity) Neurological: No Symptoms Other: Reports: Diabetes (GDM) - Physical Assessment NPO Status Date: 07/24/19 NPO Status Time: 10:00 (water) Height: 5 ft 6 in Weight: 119.748 kg ASA Class: 2 Mental Status: Alert & Oriented x3 Airway Class: Mallampati = 3 Dentition: Reports: Normal Dentition Thyro-Mental Finger Breadths: 3 ROM/Head Extension: Full Lungs: Clear to Auscultation Cardiovascular: Regular Rate, Regular Rhythm - Lab Values: Laboratory Last Values WBC 7.40 K/uL (4.0-11.0) 07/23/19 23: RBC 4.35 M/uL (4.30-5.90) 07/23/19 23: Hgb 11.2 g/dL (12.0-16.0) L 07/23/19 23: Hct 34.4 % (36.0-46.0) L 07/23/19 23: MCV 79.1 fL (80.0-98.0) L 07/23/19 23: MCH 25.7 pg (27.0-32.0) L 07/23/19 23: MCHC 32.6 g/dL (31.0-37.0) 07/23/19 23: RDW Std Deviation 51.9 fl (28.0-62.0) 07/23/19 23: RDW Coeff of Sammi 18 % (11.0-15.0) H 07/23/19 23: Plt Count 231 K/uL (150-400) 07/23/19 23: Nucleated RBC % 0.0 /100WBC 07/23/19 23: Nucleated RBCs # 0 K/uL 07/23/19 23: POC Glucose 96 mg/dL (60-110) 07/24/19 07:30 Blood Type B POSITIVE 07/23/19 23: Antibody Screen NEGATIVE 07/23/19 23: - Allergies Allergies/Adverse Reactions: Allergies Allergy/AdvReac Type Severity Reaction Status Date / Time No Known Allergies Allergy Verified 06/19/19 13:49 - Acknowledgements Anesthesia Type Planned: Epidural Pt an Appropriate Candidate for the Planned Anesthesia: Yes Alternatives and Risks of Anesthesia Discussed w Pt/Guardian: Yes Pt/Guardian Understands and Agrees with Anesthesia Plan: Yes PreAnesthesia Questionnaire HEENT History: Reports: None Cardiovascular History: Reports: None Respiratory History: Reports: Other (See Below) Gastrointestinal History: Reports: GERD Genitourinary History: Reports: None 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: Musculoskeletal History: Reports: Back Pain, Chronic Neurological History: Reports: None Psychiatric History: Reports: None Endocrine/Metabolic History: Reports: Diabetes, Gestational, Hypothyroidism, Obesity/BMI 30+ Other Endocrine/Metabolic History: on metformin for "weight loss" Hematologic History: Reports: Anemia Immunologic History: Reports: None Oncologic (Cancer) History: Reports: None Dermatologic History: Reports: Other (See Below) Other Dermatologic History: hidradenitis - Infectious Disease History Infectious Disease History: Reports: None - Past Surgical History Head Surgeries/Procedures: Reports: None HEENT Surgical History: Reports: Oral Surgery - SUBSTANCE USE Smoking Status *Q: Never Smoker Second Hand Smoke Exposure: No Recreational Drug Use History: No - HOME MEDS Home Medications: Home Meds Multivitamin [Multivitamins] 1 tab PO DAILY 12/28/17 [History] Thyroid,Pork [[place] Thyroid] 75 mg PO DAILY 12/28/17 [History] metFORMIN HCl [Metformin HCl] 1,000 mg PO DAILY 12/28/17 [History] Ferrous Gluconate [Ferate] 27 mg PO DAILY 10/15/18 [History] - CURRENT (IN HOUSE) MEDS Current Meds: Current Medications Butorphanol Tartrate (Stadol) 1 mg IVPUSH Q1H PRN PRN Reason: Pain Carboprost Tromethamine (Hemabate Ds) 250 mcg IM ASDIRECTED PRN PRN Reason: Post Hemorrhage Lactated Ringer's (Ringers, Lactated) 1,000 mls @ 150 mls/hr IV ASDIRECTED [facility] Last Admin: 07/24/19 09:11 Dose: 150 mls/hr Oxytocin/Sodium Chloride (Oxytocin 30 Unit/500 Ml-Ns) 30 unit in 500 mls @ 999 mls/hr IV TITRATE [facility] Tranexamic Acid 1,000 mg/ (Sodium Chloride) 110 mls @ 660 mls/hr IV ONETIME PRN PRN Reason: Bleeding Oxytocin/Sodium Chloride (Oxytocin 30 Unit/500 Ml-Ns) 30 unit in 500 mls @ 2 mls/hr IV TITRATE ADAM; Protocol Last Titration: 07/24/19 05:18 Dose: 14 munits/min, 14 mls/hr Dextrose/Lactated Ringer's (Dextrose 5%-Lactated Ringers) 1,000 mls @ 100 mls/ hr IV ASDIRECTED ADAM Insulin Human Regular 100 unit (/ Sodium Chloride) 100 mls @ 0.5 mls/hr IV TITRATE ADAM; Protocol Lidocaine HCl (Xylocaine 1%) 50 ml INJECT ONETIME PRN PRN Reason: Laceration repair Methylergonovine Maleate (Methergine) 0.2 mg IM ASDIRECTED PRN PRN Reason: Post Hemorrhage Misoprostol (Cytotec) 200 mcg PO ONETIME PRN PRN Reason: Post Hemorrhage Nalbuphine HCl (Nubain) 10 mg IVPUSH Q1H PRN PRN Reason: Pain (severe 7-10) Last Admin: 07/24/19 09:42 Dose: 10 mg Ondansetron HCl (Zofran) 4 mg IVPUSH Q6H PRN PRN Reason: Nausea/Vomiting Sodium Chloride (Saline Flush) 10 ml FLUSH ASDIRECTED PRN PRN Reason: Keep Vein Open Sodium Chloride (Saline Flush) 2.5 ml FLUSH ASDIRECTED PRN PRN Reason: Keep Vein Open Sodium Chloride (Normal Saline) 10 ml IV ASDIRECTED PRN PRN Reason: IV Use Sterile Water (Sterile Water For Irrigation) 1,000 ml IRR ASDIRECTED PRN PRN Reason: delivery Terbutaline Sulfate (Brethine) 0.25 mg SUBCUT ASDIRECTED PRN PRN Reason: Tacysystole Discontinued Medications Fentanyl/Bupivacaine HCl (Fentanyl/Bupivacaine/Ns 2 Mcg-0.125% 250 Ml) Confirm Administered Dose 250 mls @ as directed .ROUTE .STK-MED ONE Stop: 07/24/19 10:04 Misoprostol (Cytotec) 25 mcg VAG ONETIME ONE Stop: 07/23/19 22:41
--- NOTE | 2019-07-24 10:56 | PCM.SN ---
- Free Text/Narrative Note: Asked to start IV for insulin infusion after multiple failed attempts by nursing. 20g IV started right wrist on first attempt. Tegaderm and tape. Care to bedside RN.
[2019-07-24] MEDS ORDERED: Bupivacaine 0.25% 10 ML SDV ONE (13:12)
--- NOTE | 2019-07-24 13:20 | PCM.SN ---
- Free Text/Narrative Note: Pt co increasing pain, states now 7-8 cm, pain is primarily perineal. not mid abdominal, not R or L sided. Recently received 10 ml bolus of her epidural solution without much relief. Pt positioned upright 45-60 degrees. Bolus of 0.25% bupivicaine was given thropugh the epidural catheter. Vital signs being increased to q 5 min following this bolus and position change. No complications.
[2019-07-24] MEDS ORDERED: Acetaminophen 500 MG Tab PO PRN ×2 (16:12)
[2019-07-24] MEDS ORDERED: Witch Hazel Medicated Pads 40/Jar TOP PRN (16:12)
[2019-07-24] MEDS ORDERED: Bisacodyl 10 MG Supp RECTAL PRN (16:12)
[2019-07-24] MEDS ORDERED: Ibuprofen 800 MG Tab PO PRN (16:12)
[2019-07-24] MEDS ORDERED: Docusate Sodium 100 MG Cap PO PRN (16:12)
[2019-07-24] MEDS ORDERED: Benzocaine/Menthol 20%-0.5% Spray 78 GM Cannister TOP PRN (16:12)
[2019-07-24] MEDS ORDERED: Lanolin 100% Cream 7 GM Tube TOP PRN (16:12)
[2019-07-24] MEDS ORDERED: Ibuprofen 400 MG Tab PO PRN (16:12)
--- NOTE | 2019-07-24 20:42 | PCM.DEL ---
L & D Note - General Info Date of Service: 07/24/19 - Delivery Note Labor: Augmented by Oxytocin Cervical Ripening Method: Misoprostil Delivery Outcome: Livebirth Infant Delivery Method: Spontaneous Vaginal Delivery-Single Presentation: Right Occiput Anterior (QAIN) Nuchal Cord: None Anesthesia Type: None Episiotomy Type: None Laceration: None Estimated Blood Loss: 300 Resuscitation Needed: No Score 1 min: 8 Score 5 min: 9 Delivery Comments (Free Text/Narrative):: Live male delivered @ 204pm . Weight 4060g - General Info Date of Service: 07/24/19 - Patient Data Weight - Most Recent: 119.748 kg Lab Results Last 24 Hours: Laboratory Results - last 24 hr 07/23/19 07/23/19 07/23/19 Range/Units 23:01 23:01 23:57 WBC 7.40 (4.0-11.0) K/uL RBC 4.35 (4.30-5.90) M/uL Hgb 11.2 L (12.0-16.0) g/dL Hct 34.4 L (36.0-46.0) % MCV 79.1 L (80.0-98.0) fL MCH 25.7 L (27.0-32.0) pg MCHC 32.6 (31.0-37.0) g/dL RDW Std Deviation 51.9 (28.0-62.0) fl RDW Coeff of Sammi 18 H (11.0-15.0) % Plt Count 231 (150-400) K/uL Nucleated RBC % 0.0 /100WBC Nucleated RBCs # 0 K/uL Cord ABG pH (7.18-7.38) Cord ABG Base Excess (-10--2) Cord VBG pH (7.25-7.45) Cord VBG Base Excess (-10--2) POC Glucose 93 (60-110) mg/dL Blood Type B POSITIVE Antibody Screen NEGATIVE 07/24/19 07/24/19 07/24/19 Range/Units 03:18 07:30 11:00 WBC (4.0-11.0) K/uL RBC (4.30-5.90) M/uL Hgb (12.0-16.0) g/dL Hct (36.0-46.0) % MCV (80.0-98.0) fL MCH (27.0-32.0) pg MCHC (31.0-37.0) g/dL RDW Std Deviation (28.0-62.0) fl RDW Coeff of Sammi (11.0-15.0) % Plt Count (150-400) K/uL Nucleated RBC % /100WBC Nucleated RBCs # K/uL Cord ABG pH (7.18-7.38) Cord ABG Base Excess (-10--2) Cord VBG pH (7.25-7.45) Cord VBG Base Excess (-10--2) POC Glucose 88 96 81 (60-110) mg/dL Blood Type Antibody Screen 07/24/19 07/24/19 07/24/19 Range/Units 11:59 13:29 14:04 WBC (4.0-11.0) K/uL RBC (4.30-5.90) M/uL Hgb (12.0-16.0) g/dL Hct (36.0-46.0) % MCV (80.0-98.0) fL MCH (27.0-32.0) pg MCHC (31.0-37.0) g/dL RDW Std Deviation (28.0-62.0) fl RDW Coeff of Sammi (11.0-15.0) % Plt Count (150-400) K/uL Nucleated RBC % /100WBC Nucleated RBCs # K/uL Cord ABG pH (7.18-7.38) Cord ABG Base Excess (-10--2) Cord VBG pH 7.276 (7.25-7.45) Cord VBG Base Excess -5 (-10--2) POC Glucose 87 83 (60-110) mg/dL Blood Type Antibody Screen 07/24/19 Range/Units 14:04 WBC (4.0-11.0) K/uL RBC (4.30-5.90) M/uL Hgb (12.0-16.0) g/dL Hct (36.0-46.0) % MCV (80.0-98.0) fL MCH (27.0-32.0) pg MCHC (31.0-37.0) g/dL RDW Std Deviation (28.0-62.0) fl RDW Coeff of Sammi (11.0-15.0) % Plt Count (150-400) K/uL Nucleated RBC % /100WBC Nucleated RBCs # K/uL Cord ABG pH 7.267 (7.18-7.38) Cord ABG Base Excess -6 (-10--2) Cord VBG pH (7.25-7.45) Cord VBG Base Excess (-10--2) POC Glucose (60-110) mg/dL Blood Type Antibody Screen Med Orders - Current: Current Medications Acetaminophen (Tylenol Extra Strength) 500 mg PO Q4H PRN PRN Reason: Pain Acetaminophen (Tylenol Extra Strength) 1,000 mg PO Q4H PRN PRN Reason: Pain Benzocaine/Menthol (Dermoplast Pain Relief 20%-0.5% [place]) 78 gm TOP ASDIRECTED PRN PRN Reason: Perineal Comfort Measure Bisacodyl (Dulcolax) 10 mg RECTAL ONETIME PRN PRN Reason: Constipation Butorphanol Tartrate (Stadol) 1 mg IVPUSH Q1H PRN PRN Reason: Pain Carboprost Tromethamine (Hemabate Ds) 250 mcg IM ASDIRECTED PRN PRN Reason: Post Hemorrhage Docusate Sodium (Colace) 100 mg PO BID PRN PRN Reason: Constipation Emollient Ointment (Lansinoh Hpa) 0 gm TOP ASDIRECTED PRN PRN Reason: Sore Nipples Lactated Ringer's (Ringers, Lactated) 1,000 mls @ 150 mls/hr IV ASDIRECTED ADAM Last Admin: 07/24/19 09:11 Dose: 150 mls/hr Oxytocin/Sodium Chloride (Oxytocin 30 Unit/500 Ml-Ns) 30 unit in 500 mls @ 999 mls/hr IV TITRATE ADAM Tranexamic Acid 1,000 mg/ (Sodium Chloride) 110 mls @ 660 mls/hr IV ONETIME PRN PRN Reason: Bleeding Oxytocin/Sodium Chloride (Oxytocin 30 Unit/500 Ml-Ns) 30 unit in 500 mls @ 2 mls/hr IV TITRATE ADAM; Protocol Last Titration: 07/24/19 14:04 Dose: 999 munits/min, 999 mls/hr Dextrose/Lactated Ringer's (Dextrose 5%-Lactated Ringers) 1,000 mls @ 100 mls/ hr IV ASDIRECTED AD[facility] Last Admin: 07/24/19 10:45 Dose: 100 mls/hr Insulin Human Regular 100 unit (/ Sodium Chloride) 100 mls @ 0.5 mls/hr IV TITRATE ADAM; Protocol Last Titration: 07/24/19 12:02 Dose: 0 unit/hr, 0 mls/hr Ibuprofen (Motrin) 400 mg PO Q4H PRN PRN Reason: Pain Ibuprofen (Motrin) 800 mg PO Q6H PRN PRN Reason: Pain Lidocaine HCl (Xylocaine 1%) 50 ml INJECT ONETIME PRN PRN Reason: Laceration repair Methylergonovine Maleate (Methergine) 0.2 mg IM ASDIRECTED PRN PRN Reason: Post Hemorrhage Misoprostol (Cytotec) 200 mcg PO ONETIME PRN PRN Reason: Post Hemorrhage Nalbuphine HCl (Nubain) 10 mg IVPUSH Q1H PRN PRN Reason: Pain (severe 7-10) Last Admin: 07/24/19 09:42 Dose: 10 mg Ondansetron HCl (Zofran) 4 mg IVPUSH Q6H PRN PRN Reason: Nausea/Vomiting Oxycodone HCl (Oxycodone) 5 mg PO Q2H PRN PRN Reason: Pain Sodium Chloride (Saline Flush) 10 ml FLUSH ASDIRECTED PRN PRN Reason: Keep Vein Open Sodium Chloride (Saline Flush) 2.5 ml FLUSH ASDIRECTED PRN PRN Reason: Keep Vein Open Sodium Chloride (Normal Saline) 10 ml IV ASDIRECTED PRN PRN Reason: IV Use Sterile Water (Sterile Water For Irrigation) 1,000 ml IRR ASDIRECTED PRN PRN Reason: delivery Last Admin: 07/24/19 14:31 Dose: 1,000 ml Terbutaline Sulfate (Brethine) 0.25 mg SUBCUT ASDIRECTED PRN PRN Reason: Tacysystole Witch Mikki (Tucks) 1 pad TOP ASDIRECTED PRN PRN Reason: comfort care Discontinued Medications Bupivacaine HCl (Sensorcaine-Mpf 0.25%) Confirm Administered Dose 10 ml .ROUTE .STK-MED ONE Stop: 07/24/19 13:13 Fentanyl/Bupivacaine HCl (Fentanyl/Bupivacaine/Ns 2 Mcg-0.125% 250 Ml) Confirm Administered Dose 250 mls @ as directed .ROUTE .STK-MED ONE Stop: 07/24/19 10:04 Misoprostol (Cytotec) 25 mcg VAG ONETIME ONE Stop: 07/23/19 22:41 - Problem List & Annotations (1) Delivery normal SNOMED Code(s): 46221503, 620159342 Code(s): O80 - ENCOUNTER FOR FULL-TERM UNCOMPLICATED DELIVERY; Z37.9 - OUTCOME OF DELIVERY, UNSPECIFIED Status: Acute Current Visit: No - Problem List Review Problem List Initiated/Reviewed/Updated: Yes - My Orders Last 24 Hours: My Active Orders 07/23/19 22:34 Patient Status [ADT] Routine Notify Provider [RC] PRN Vital Signs [RC] PER UNIT ROUTINE Butorphanol [Stadol] 1 mg IVPUSH Q1H PRN Carboprost Tromethamine [Hemabate DS] 250 mcg IM ASDIRECTED PRN Lidocaine 1% [Xylocaine 1%] 50 ml INJECT ONETIME PRN Methylergonovine [Methergine] 0.2 mg IM ASDIRECTED PRN Nalbuphine [Nubain] 10 mg IVPUSH Q1H PRN Ondansetron [Zofran] 4 mg IVPUSH Q6H PRN Sodium Chloride 0.9% [Normal Saline] 10 ml IV ASDIRECTED PRN Sodium Chloride 0.9% [Saline Flush] 10 ml FLUSH ASDIRECTED PRN Sodium Chloride 0.9% [Saline Flush] 2.5 ml FLUSH ASDIRECTED PRN Tranexamic Acid [Cyklokapron] 1,000 mg Sodium Chloride 0.9% [Normal Saline] 100 ml IV ONETIME Water For Irrigation,Sterile [Sterile Water for Irrigation] 1,000 ml IRR ASDIRECTED PRN miSOPROStoL [Cytotec] 200 mcg PO ONETIME PRN Scalp Electrode [WOMSER] Per Unit Routine Peripheral IV Insertion Adult [OM.PC] Routine Resuscitation Status Routine 07/23/19 22:45 Lactated Ringers [Ringers, Lactated] 1,000 ml IV ASDIRECTED Oxytocin/0.9 % Sodium Chloride [Oxytocin 30 Unit/500 ML-NS] 30 unit in 500 ml IV TITRATE 07/23/19 23:01 RPR (SYPHILIS SERO) W/ RFLX [REF] Routine 07/24/19 10:00 Dextrose 5%-Lactated Ringers 1,000 ml IV ASDIRECTED 07/24/19 10:15 Insulin Regular, Human [NovoLIN R] 100 unit Sodium Chloride 0.9% [Normal Saline] 99 ml IV TITRATE 07/24/19 16:12 Acetaminophen [Tylenol Extra Strength] 1,000 mg PO Q4H PRN Acetaminophen [Tylenol Extra Strength] 500 mg PO Q4H PRN Benzocaine/Menthol [Dermoplast Pain Relief 20%-0.5% [place]] 78 gm TOP ASDIRECTED PRN Docusate Sodium [Colace] 100 mg PO BID PRN Ibuprofen [Motrin] 400 mg PO Q4H PRN Ibuprofen [Motrin] 800 mg PO Q6H PRN Lanolin [Lansinoh HPA] See Dose Instructions TOP ASDIRECTED PRN bisacodyL [Dulcolax] 10 mg RECTAL ONETIME PRN oxyCODONE 5 mg PO Q2H PRN witch Mikki [Tucks] 1 pad TOP ASDIRECTED PRN 07/24/19 16:13 Patient Status [ADT] Routine May Shower [RC] ASDIRECTED Up ad Damaris [RC] ASDIRECTED Assess Lochia [WOMSER] Per Unit Routine Assess Uterine Involution [WOMSER] Per Unit Routine Peripheral IV Discontinue [OM.PC] Routine 07/24/19 Dinner Regular Diet [DIET] 07/25/19 05:11 HEMOGLOBIN/HEMATOCRIT,HH [HEME] Timed - Plan Plan:: 34yo [id number] s/p , GDMA
[2019-07-24] MEDS: oxyCODONE 5 MG Tab PO PRN (22:41)
[2019-07-25] MEDS: oxyCODONE 5 MG Tab PO PRN (02:28)
--- NOTE | 2019-07-25 07:20 | PCM48HPAN ---
Post Anesthesia Note - EVALUATION WITHIN 48HRS OF ANESTHETIC Vital Signs in Normal Range: Yes Patient Participated in Evaluation: Yes Respiratory Function Stable: Yes Airway Patent: Yes Cardiovascular Function Stable: Yes Hydration Status Stable: Yes Pain Control Satisfactory: Yes Nausea and Vomiting Control Satisfactory: Yes Mental Status Recovered: Yes Vital Signs: Last Vital Signs Temp 36.2 C 07/25/19 04:58 Pulse 96 07/25/19 04:58 Resp 18 07/25/19 04:58 BP 102/60 07/25/19 04:58 Pulse Ox 97 07/25/19 04:58
--- NOTE | 2019-07-25 08:07 | PCM.PNPP ---
- General Info Date of Service: 07/25/19 Functional Status: Reports: Pain Controlled, Tolerating Diet, Ambulating, Urinating - Review of Systems General: Reports: No Symptoms HEENT: Reports: No Symptoms Pulmonary: Reports: No Symptoms Cardiovascular: Reports: No Symptoms Gastrointestinal: Reports: No Symptoms Genitourinary: Reports: No Symptoms Musculoskeletal: Reports: No Symptoms Skin: Reports: No Symptoms Neurological: Reports: No Symptoms Psychiatric: Reports: No Symptoms - General Info Date of Service: 07/25/19 - Patient Data Vital Signs - Most Recent: Last Vital Signs Temp 36.2 C 07/25/19 04:58 Pulse 96 07/25/19 04:58 Resp 18 07/25/19 04:58 BP 102/60 07/25/19 04:58 Pulse Ox 97 07/25/19 04:58 Weight - Most Recent: 119.748 kg Lab Results - Last 24 Hours: Laboratory Results - last 24 hr 07/24/19 07/24/19 07/24/19 Range/Units 11:00 11:59 13:29 Hgb (12.0-16.0) g/dL Hct (36.0-46.0) % Cord ABG pH (7.18-7.38) Cord ABG Base Excess (-10--2) Cord VBG pH (7.25-7.45) Cord VBG Base Excess (-10--2) POC Glucose 81 87 83 (60-110) mg/dL 07/24/19 07/24/19 07/25/19 Range/Units 14:04 14:04 06:00 Hgb 11.2 L (12.0-16.0) g/dL Hct 35.2 L (36.0-46.0) % Cord ABG pH 7.267 (7.18-7.38) Cord ABG Base Excess -6 (-10--2) Cord VBG pH 7.276 (7.25-7.45) Cord VBG Base Excess -5 (-10--2) POC Glucose (60-110) mg/dL Med Orders - Current: Current Medications Acetaminophen (Tylenol Extra Strength) 500 mg PO Q4H PRN PRN Reason: Pain Acetaminophen (Tylenol Extra Strength) 1,000 mg PO Q4H PRN PRN Reason: Pain Benzocaine/Menthol (Dermoplast Pain Relief 20%-0.5% [place]ope) 78 gm TOP ASDIRECTED PRN PRN Reason: Perineal Comfort Measure Bisacodyl (Dulcolax) 10 mg RECTAL ONETIME PRN PRN Reason: Constipation Butorphanol Tartrate (Stadol) 1 mg IVPUSH Q1H PRN PRN Reason: Pain Carboprost Tromethamine (Hemabate Ds) 250 mcg IM ASDIRECTED PRN PRN Reason: Post Hemorrhage Docusate Sodium (Colace) 100 mg PO BID PRN PRN Reason: Constipation Last Admin: 07/24/19 22:41 Dose: 100 mg Emollient Ointment (Lansinoh Hpa) 0 gm TOP ASDIRECTED PRN PRN Reason: Sore Nipples Lactated Ringer's (Ringers, Lactated) 1,000 mls @ 150 mls/hr IV ASDIRECTED ADAM Last Admin: 07/24/19 09:11 Dose: 150 mls/hr Oxytocin/Sodium Chloride (Oxytocin 30 Unit/500 Ml-Ns) 30 unit in 500 mls @ 999 mls/hr IV TITRATE ADAM Tranexamic Acid 1,000 mg/ (Sodium Chloride) 110 mls @ 660 mls/hr IV ONETIME PRN PRN Reason: Bleeding Oxytocin/Sodium Chloride (Oxytocin 30 Unit/500 Ml-Ns) 30 unit in 500 mls @ 2 mls/hr IV TITRATE ADAM; Protocol Last Titration: 07/24/19 14:04 Dose: 999 munits/min, 999 mls/hr Dextrose/Lactated Ringer's (Dextrose 5%-Lactated Ringers) 1,000 mls @ 100 mls/ hr IV ASDIRECTED ADAM Last Admin: 07/24/19 10:45 Dose: 100 mls/hr Insulin Human Regular 100 unit (/ Sodium Chloride) 100 mls @ 0.5 mls/hr IV TITRATE ADAM; Protocol Last Titration: 07/24/19 12:02 Dose: 0 unit/hr, 0 mls/hr Ibuprofen (Motrin) 400 mg PO Q4H PRN PRN Reason: Pain Ibuprofen (Motrin) 800 mg PO Q6H PRN PRN Reason: Pain Last Admin: 07/25/19 07:56 Dose: 800 mg Lidocaine HCl (Xylocaine 1%) 50 ml INJECT ONETIME PRN PRN Reason: Laceration repair Methylergonovine Maleate (Methergine) 0.2 mg IM ASDIRECTED PRN PRN Reason: Post Hemorrhage Misoprostol (Cytotec) 200 mcg PO ONETIME PRN PRN Reason: Post Hemorrhage Nalbuphine HCl (Nubain) 10 mg IVPUSH Q1H PRN PRN Reason: Pain (severe 7-10) Last Admin: 07/24/19 09:42 Dose: 10 mg Ondansetron HCl (Zofran) 4 mg IVPUSH Q6H PRN PRN Reason: Nausea/Vomiting Oxycodone HCl (Oxycodone) 5 mg PO Q2H PRN PRN Reason: Pain Last Admin: 07/25/19 02:28 Dose: 5 mg Sodium Chloride (Saline Flush) 10 ml FLUSH ASDIRECTED PRN PRN Reason: Keep Vein Open Sodium Chloride (Saline Flush) 2.5 ml FLUSH ASDIRECTED PRN PRN Reason: Keep Vein Open Sodium Chloride (Normal Saline) 10 ml IV ASDIRECTED PRN PRN Reason: IV Use Sterile Water (Sterile Water For Irrigation) 1,000 ml IRR ASDIRECTED PRN PRN Reason: delivery Last Admin: 07/24/19 14:31 Dose: 1,000 ml Terbutaline Sulfate (Brethine) 0.25 mg SUBCUT ASDIRECTED PRN PRN Reason: Tacysystole Witch Syeda (Tucks) 1 pad TOP ASDIRECTED PRN PRN Reason: comfort care Discontinued Medications Bupivacaine HCl (Sensorcaine-Mpf 0.25%) Confirm Administered Dose 10 ml .ROUTE .STK-MED ONE Stop: 07/24/19 13:13 Last Admin: 07/25/19 07:31 Dose: Not Given Fentanyl/Bupivacaine HCl (Fentanyl/Bupivacaine/Ns 2 Mcg-0.125% 250 Ml) Confirm Administered Dose 250 mls @ as directed .ROUTE .STK-MED ONE Stop: 07/24/19 10:04 Last Admin: 07/25/19 07:31 Dose: Not Given Misoprostol (Cytotec) 25 mcg VAG ONETIME ONE Stop: 07/23/19 22:41 - Interaction Support Person: , Significant Other - Recovery Exam Fundal Tone: Firm Fundal Level: 2 Fingerbreadths Above Umbilicus Fundal Placement: Midline Lochia Amount: Scant Lochia Color: Rubra/Red Perineum Description: Intact, Minimal Bruising/Swelling Episiotomy/Laceration: None Bladder Status: Voiding Urinary Elimination: Voided - Exam General: Alert HEENT: Pupils Equal Neck: Supple Lungs: Clear to Auscultation Cardiovascular: Regular Rate, Regular Rhythm GI/Abdominal Exam: Normal Bowel Sounds Neurological: No New Focal Deficit - Problem List & Annotations (1) Delivery normal SNOMED Code(s): 46533653, 911805373 Code(s): O80 - ENCOUNTER FOR FULL-TERM UNCOMPLICATED DELIVERY; Z37.9 - OUTCOME OF DELIVERY, UNSPECIFIED Status: Acute Current Visit: No - Problem List Review Problem List Initiated/Reviewed/Updated: Yes - My Orders Last 24 Hours: My Active Orders 07/24/19 10:00 Dextrose 5%-Lactated Ringers 1,000 ml IV ASDIRECTED 07/24/19 10:15 Insulin Regular, Human [NovoLIN R] 100 unit Sodium Chloride 0.9% [Normal Saline] 99 ml IV TITRATE 07/24/19 16:12 Acetaminophen [Tylenol Extra Strength] 1,000 mg PO Q4H PRN Acetaminophen [Tylenol Extra Strength] 500 mg PO Q4H PRN Benzocaine/Menthol [Dermoplast Pain Relief 20%-0.5% Cope] 78 gm TOP ASDIRECTED PRN Docusate Sodium [Colace] 100 mg PO BID PRN Ibuprofen [Motrin] 400 mg PO Q4H PRN Ibuprofen [Motrin] 800 mg PO Q6H PRN Lanolin [Lansinoh HPA] See Dose Instructions TOP ASDIRECTED PRN bisacodyL [Dulcolax] 10 mg RECTAL ONETIME PRN oxyCODONE 5 mg PO Q2H PRN witch Syeda [Tucks] 1 pad TOP ASDIRECTED PRN 07/24/19 16:13 Patient Status [ADT] Routine May Shower [RC] ASDIRECTED Up ad Damaris [RC] ASDIRECTED Assess Lochia [WOMSER] Per Unit Routine Assess Uterine Involution [WOMSER] Per Unit Routine Peripheral IV Discontinue [OM.PC] Routine 07/24/19 Dinner Regular Diet [DIET] - Assessment Assessment:: 34 yo P4 s/p PPD 1 , Gestational DM , Normal H/H - Plan Plan:: Discharge home today
[2019-07-25 08:15] VITALS: BP 103/57; PULSE 84
--- NOTE | 2019-07-25 14:17 | OR ---
SURGEON: BOB GAYTAN DATE OF PROCEDURE: PREOPERATIVE DIAGNOSES: A 34-year-old, G5, P 3-0-1-3, at 37 weeks 6 days, GDMA2, and macrosomia for induction of labor for poorly-controlled diabetes. POSTOPERATIVE DIAGNOSES: A 34-year-old, G5, P 3-0-1-3, at 37 weeks 6 days, GDMA2, and macrosomia for induction of labor for poorly-controlled diabetes. PROCEDURE: Normal spontaneous vaginal delivery. ESTIMATED BLOOD LOSS: 300. IV FLUID: Pitocin running. ANESTHESIA: Epidural. NOTES AND FINDINGS: A live male delivered at 2:04 p.m. scores were 8 and 9. Weight is 4060 g. BRIEF HISTORY: She is a 34-year-old, G5, P 3-0-1-3, at 37 weeks 6 days, who was being followed for routine care. She was diagnosed with gestational diabetes. She was previously on metformin, so she wanted to continue. She declined any insulin at that time and EFW was done, was noted to be 4000 g. Estimated at 39 weeks was 4600. The patient was counseled for a primary for macrosomia at 39 weeks, which she declined. However, because of her poor sugar fingersticks, she was induced. Induction of labor was started with Cytotec. After Cytotec, she received Pitocin. An AROM was done. Clear fluid was noted. She made normal labor progress and became fully dilated. DESCRIPTION OF PROCEDURE: With the patient being fully dilated, she was encouraged to push. With good pushing effort, she delivered the head subsequently by the anterior and posterior shoulder. The body of the infant was delivered without difficulty. Infant was placed on the abdomen and delayed cord clamping was observed. Cord blood gases were obtained. Placenta was delivered via controlled cord traction. Uterus was inspected, was noted to be firm. Perineum was intact. Manual massage was done. The patient tolerated the procedure well and was left in Labor and Delivery room in stable condition. RACHAEL EVERETT /[id number]
== END 2019-07-25 18:23 | disposition home or self-care (01) | DRG 807 ==
LOC: MW.OB 14:04 → OBSVTOIN 07-24 14:04 → MW.OB 07-24 16:30
PROVIDERS: ADMIT Obstetrics & Gynecology; ATTEND Obstetrics & Gynecology
PROC: 10E0XZZ Delivery of Products of Conception, External Approach (ICD-10-PCS; principal; 2019-07-24)
PROC: 10907ZC Drainage of Amniotic Fluid, Therapeutic from Products of Conception, Via Natural or Artificial Opening (ICD-10-PCS; 2019-07-24)
PROC: 3E033VJ Introduction of Other Hormone into Peripheral Vein, Percutaneous Approach (ICD-10-PCS; 2019-07-24)
PROC: 3E0R3BZ Introduction of Anesthetic Agent into Spinal Canal, Percutaneous Approach (ICD-10-PCS; 2019-07-24)
PROC: 00HU33Z Insertion of Infusion Device into Spinal Canal, Percutaneous Approach (ICD-10-PCS; 2019-07-24)
DX: O24.429 Gestational diabetes mellitus in childbirth, unspecified control (principal); Z37.0 Single live birth; O36.63X0 Maternal care for excessive fetal growth, third trimester, not applicable or unspecified; Z3A.37 37 weeks gestation of pregnancy
CPT/HCPCS: 36415; 51701; 59025; 59409; 82803; 82962; 85014; 85018; 85027; 86592; 86593; 86850; 86900; 86901; A9270-GY; J1815-GY; J2300; J2590; J7050; J7120; J7121